=== PATIENT | male | born 1985 | race Caucasian/White ===

== ENCOUNTER 2017-06-01 12:14 | Emergency (ER) | payer OTHER ==
[~2017-06-01] VITALS: Ht 182.9 cm; Wt 100.6 kg
[2017-06-01 12:15] VITALS: TEMP 36.7; Ht 182.9 cm; Wt 100.6 kg
[2017-06-01] MEDS ORDERED: KETOROLAC TROMETHAMINE 30 MG/ML VIAL IV STA (12:31)
--- NOTE | 2017-06-01 12:45 | EMERGENCY ROOM VISIT NOTE ---
ED Visit Note First contact with patient: 12:19 CHIEF COMPLAINT: Right knee pain and swelling HISTORY OF PRESENT ILLNESS: This is a 31-year-old male who presents to the emergency department with complaint of right knee pain and swelling for the past 5 days. The patient does note a possible injury to the knee 2 weeks ago when he fell on some ice, states he mostly injured his left knee which has not been bothering him, but thinks he may have hit his right knee as well. 5 days ago he began to have swelling in the front of his right knee, this got much worse yesterday, stating my knee looked like a basketball. He states that he has been hot to the touch, very painful, difficult to walk on, painful with bending and straightening the knee, and has started to become red. States the pain is constant, 6/10. He has been taking ibuprofen and applying ice without any improvement. He denies any previous injuries to the right knee. He denies any fevers or chills, numbness/tingling or weakness of the extremity, denies any right hip or ankle pain, denies any swelling or pain of other joints. He states he spends a lot of time outdoors and it is possible he could have been exposed to ticks. REVIEW OF SYSTEMS: A complete 10 point review of systems was reviewed with the patient with pertinent positives and negatives as per history of present illness. All else were negative. PMH: The patient is healthy; there is no significant medical or surgical history. SOCIAL HISTORY: Patient lives at home. He denies tobacco use. PHYSICAL EXAM: Vital Signs: Reviewed Nurse's notes. CONSTITUTIONAL: Pleasant and cooperative. No acute distress, but with noticeable discomfort during exam. Well appearing and well nourished. HEENT: Normocephalic, atraumatic. Pupils equal, round and reactive to light, EOMI. TMs normal. Pharynx normal. Moist mucous membranes. NECK: Supple, full active range of motion without discomfort. RESPIRATORY: Clear to auscultation bilaterally with no wheezing, crackles, rhonchi or stridor. Equal expansion bilaterally. CARDIOVASCULAR: Regular rate and rhythm with no murmurs, rubs or gallops. Normal peripheral perfusion. No edema. GASTROINTESTINAL: Soft, nontender, nondistended. No palpable masses or HSM. Bowel sounds present in all quadrants. MUSCULOSKELETAL: There is moderate swelling over the anterior prepatellar area of the right knee, with a small joint effusion. Full flexion and extension of the knee intact, however there is increased pain with flexion. There is no ligamentous instability. There is mild erythema over the anterior knee, warm to touch, and tender to palpation. There is fluctuance over the prepatellar area consistent with the bursa. Normal strength and sensation of the extremity. No calf swelling or tenderness. Full range of motion of the right ankle and hip. INTEGUMENTARY: No rash or other significant dermatologic conditions noted. NEUROLOGIC: Alert and oriented X 4 with normal affect. Cranial nerves II-XII grossly intact. No focal neurologic deficits noted. M IMAGING: RIGHT KNEE 3 VIEWS CLINICAL HISTORY: Knee injury. Pain and swelling. FINDINGS: AP, crosstable lateral, and sunrise views of the right knee are obtained. No prior studies are available for comparison at the time of dictation. The skeletal structures are well mineralized. No fracture is seen. The joint spaces of the knee are well-maintained. There is a joint effusion, as well as marked prepatellar soft tissue edema. IMPRESSION: Soft tissue edema and joint effusion. No right knee fracture is seen. PROCEDURE: Knee Arthrocentesis, right Indication: Right knee swelling, erythema, pain, warmth Verbal consent was obtained after the risks and benefits were explained, including but not limited to bleeding/clotting, scarring, infection, pain, and bone/joint/nerve damage. At this time, the risks of the procedure are less than the risks of NOT performing the procedure. A time out was taken and the correct patient and site identified. The patient was placed in the supine position with a towel roll under the right knee in a slightly flexed position. The knee was prepped with betadine and draped in the standard fashion. The right superior lateral joint space was identified, anesthetized locally with 1% buffered lidocaine with epinephrine. An 18G needle was inserted through the skin, and constant steady traction was applied to the syringe as the needle was slowly advanced there was no return of fluid. A second attempt was also made from the same approach to drain the bursa utilizing the same technique, small amount of thick clotted blood was drawn back, no other fluid. No additional attempts were made, as the patient was experiencing significant discomfort during the procedure, therefore the procedure was stopped. The needle was removed and the skin was cleaned with sterile gauze and saline, and a band-aid was placed over the insertion site. There were no known complications. EMERGENCY DEPARTMENT COURSE: I examined the patient. Differential diagnosis includes knee sprain/strain, contusion, hematoma, bursitis, tendinitis, effusion , gouty arthritis, Lyme arthritis, joint, among others. X-ray of the right knee does not show any fractures, but does show a moderate amount of prepatellar soft tissue swelling and small joint effusion. Labs were ordered, no significant concerns for septic joint given no leukocytosis or elevation and inflammatory markers. There is an elevated uric acid level, which may indicate a gouty process. I discussed risks and benefits of arthrocentesis with the patient, he verbalized understanding and was agreeable to the procedure. The procedure was performed, however there was no fluid aspirate obtained to send to the lab. Given the return of clotted blood from the bursa, I do suspect a traumatic bursitis of the knee, however given that the area is warm and erythematous, I am also concerned for an infectious process. Patient does have good range of motion in the knee joint and labs are unremarkable, therefore I do not suspect septic joint at this time. The patient's knee was wrapped in an Sean wrap and place in a knee immobilizer, with good improvement in patient comfort. Patient was provided with Rx for Keflex and [place] for pain management. The patient was instructed to follow closely with his primary care provider and was given strict precautions should his symptoms worsen in any way , he verbalized understanding. Patient was discharged home in stable condition and laboratory. Medication Reconciliation: I attest that I have personally reviewed the patient' s current medication list. Blood pressure screening: The patient was found to have an elevated blood pressure, this was felt to be situational due to pain. I discussed the patient with Dr. Gonzalez, who agrees with my assessment and plan. Current/Historical Medications Scheduled Cephalexin Monohydrate (Keflex), 500 MG PO QID Scheduled PRN Hydrocodone/Acetaminophen 5MG/325MG ([place] 5MG/325MG), 1-2 TABLET PO Q4H PRN for Pain Allergies Coded Allergies: No Known Allergies (Unverified , 06/01/17) Vital Signs Date Time Temp Pulse Resp B/P (MAP) Pulse Ox O2 Delivery O2 Flow Rate FiO2 06/01/17 15:19 73 16 147/86 96 Room Air 06/01/17 14:00 74 15 135/88 98 Room Air 06/01/17 12:15 36.7 78 18 139/93 98 Room Air Laboratory Results 06/01/17 12:45 Red Blood Count 4.85, Mean Corpuscular Volume 92.0, Mean Corpuscular Hemoglobin 32.4, Mean Corpuscular Hemoglobin Concent 35.2, Mean Platelet Volume 11.3, Neutrophils (%) (Auto) 55.5, Lymphocytes (%) (Auto) 33.7, Monocytes (%) (Auto) 7.1, Eosinophils (%) (Auto) 3.0, Basophils (%) (Auto) 0.4, Neutrophils # (Auto) 5.53, Lymphocytes # (Auto) 3.36, Monocytes # (Auto) 0.71, Eosinophils # (Auto) 0.30, Basophils # (Auto) 0.04 06/01/17 12:45 Test 06/01/17 12:45 White Blood Count 9.97 K/uL (4.8-10.8) Red Blood Count 4.85 M/uL (4.7-6.1) Hemoglobin 15.7 g/dL (14.0-18.0) Hematocrit 44.6 % (42-52) Mean Corpuscular Volume 92.0 fL (80-100) Mean Corpuscular Hemoglobin 32.4 pg (25-34) Mean Corpuscular Hemoglobin Concent 35.2 g/dl (32-36) Platelet Count 194 K/uL (130-400) Mean Platelet Volume 11.3 fL (7.4-10.4) Neutrophils (%) (Auto) 55.5 % Lymphocytes (%) (Auto) 33.7 % Monocytes (%) (Auto) 7.1 % Eosinophils (%) (Auto) 3.0 % Basophils (%) (Auto) 0.4 % Neutrophils # (Auto) 5.53 K/uL (1.4-6.5) Lymphocytes # (Auto) 3.36 K/uL (1.2-3.4) Monocytes # (Auto) 0.71 K/uL (0.11-0.59) Eosinophils # (Auto) 0.30 K/uL (0-0.5) Basophils # (Auto) 0.04 K/uL (0-0.2) RDW Standard Deviation 41.5 fL (36.4-46.3) RDW Coefficient of Variation 12.3 % (11.5-14.5) Immature Granulocyte % (Auto) 0.3 % Immature Granulocyte # (Auto) 0.03 K/uL (0.00-0.02) Erythrocyte Sedimentation Rate < 2 mm/hr (0-14) Anion Gap 5.0 mmol/L (3-11) Est Creatinine Clear Calc Drug Dose 136.9 ml/min Estimated GFR () 121.6 Estimated GFR (Non- 104.9 BUN/Creatinine Ratio 12.6 (10-20) Uric Acid 7.5 mg/dl (2.6-7.2) Calcium Level 9.0 mg/dl (8.5-10.1) Total Bilirubin 0.4 mg/dl (0.2-1) Direct Bilirubin mg/dl (0-0.2) Aspartate Amino Transf (AST/SGOT) 30 U/L (15-37) Alanine Aminotransferase (ALT/SGPT) 57 U/L (12-78) Alkaline Phosphatase 67 U/L (45-117) C-Reactive Protein < 0.29 mg/dl (0-0.29) Total Protein 7.9 gm/dl (6.4-8.2) Albumin 4.5 gm/dl (3.4-5.0) Chemistry Specimen Hemolysis Lyme Disease IgG Antibody NEG (NEG) Lyme Disease IgM Antibody NEG (NEG) Medications Administered Medications (Trade) Dose Ordered Sig/Josh Route Start Time Stop Time Status Last Admin Dose Admin Ketorolac Tromethamine (Toradol Inj) 15 mg NOW STAT IV 06/01/17 12:31 06/01/17 12:35 DC 06/01/17 13:12 15 MG Cephalexin Monohydrate (Keflex 500MG Home Pack) 1 homepack NOW ONCE PO 06/01/17 14:45 06/01/17 14:46 DC 06/01/17 14:58 1 HOMEPACK Cephalexin Monohydrate (Keflex Cap) 500 mg NOW ONCE PO 06/01/17 14:45 06/01/17 14:46 DC 06/01/17 14:58 500 MG Acetaminophen/ Hydrocodone Bitart ([place] 5/325mg Home Pack) 1 homepack UD ONCE PO 06/01/17 14:45 1/1/18 14:46 DC 06/01/17 14:58 1 HOMEPACK Departure Information Impression Primary Impression: Prepatellar bursitis, right knee Dispostion Home / Self-Care Condition GOOD Prescriptions Hydrocodone/Acetaminophen 5MG/325MG ([place] 5MG/325MG) Tab 1-2 TABLET PO Q4H Y for Pain, #20 TAB For Initial Treatment Prov: Consuelo DevineLULU Alvarado 06/01/17 Cephalexin Monohydrate (Keflex) 500 Mg Cap 500 MG PO QID for 7 Days, #28 CAP Prov: Consuelo Devine, [employer] 06/01/17 Referrals No Doctor, Assigned (PCP) Patient Instructions ED Bursitis, ED Infec Skin Cellulitis, [facility] Additional Instructions You were seen in the Emergency Department for cellulitis and bursitis of your right knee. You have been prescribed Keflex to be taken 4 times a day for 7 days. This is an antibiotic to treat for infection. Stop this medication and contact a medical provider if you were to develop any significant adverse side effects including: wheezing, shortness of breath, passing out, vomiting, or a diffuse rash. Always take antibiotics as directed and COMPLETE the ENTIRE course regardless of the improvement of your symptoms. You have been prescribed [place] to be taken as needed for severe pain. This is a narcotic, do not drive, operate machinery, or drink alcohol while you're taking this medication, as it may make you drowsy. For pain control, you can use the following [id number] medicines (if >12 yo): - Extra strength (500mg/tab) Tylenol (acetaminophen) 1-2 tabs every 6-8 hours as needed. Do not exceed 6 tablets in a 24 hour period. Avoid taking more than 3 grams (3000 mg) of Tylenol per day. This includes any other sources of acetaminophen you may take on a regular basis. - Regular strength (200 mg/tab) Advil (ibuprofen) 1-2 tabs every 4-6 hours as needed. Do not exceed a dose of 3200 mg per day. Apply warm compresses to the area to help with pain and also to help improve the infection. Keep the knee wrapped in Sean wrap for compression of the swelling and wear the knee brace for comfort, until the knee pain and swelling are improved. Follow up with your PCP in 2 days for recheck, or sooner for worsening symptoms. Look for signs of worsening infection of the wound including: increased pain, swelling, foul discharge, streaking, or fevers/chills/feeling ill. If any of these are noticed you should return to the Emergency Department for further assessment and treatment. Work Instructions Return To Work: 2 days
[2017-06-01 12:56] LABS: BASO % 0.4 %; BASO ABS # 0.04 K/uL (0-0.2); HEMATOCRIT 44.6 % (42-52); HEMOGLOBIN 15.7 g/dL (14.0-18.0); IG# 0.03 K/uL (0.00-0.02); LYMPH % 33.7 %; LYMPH ABS # 3.36 K/uL (1.2-3.4); MEAN CORPUSCULAR HEMOGLOBIN 32.4 pg (25-34); MEAN CORPUSCULAR HGB CONC 35.2 g/dl (32-36); MEAN PLATELET VOLUME 11.3 fL (7.4-10.4); MONO % 7.1 %; MONO ABS # 0.71 K/uL (0.11-0.59); NEUT % 55.5 %; NEUT ABS # 5.53 K/uL (1.4-6.5); PLATELET COUNT 194 K/uL (130-400); RED CELL DISTRIBUTION WIDTH CV 12.3 % (11.5-14.5); RED CELL DISTRIBUTION WIDTH SD 41.5 fL (36.4-46.3); WHITE BLOOD COUNT 9.97 K/uL (4.8-10.8)
--- NOTE | 2017-06-01 13:06 | DIAGNOSTIC IMAGING REPORT ---
RIGHT KNEE 3 VIEWS CLINICAL HISTORY: Knee injury. Pain and swelling. FINDINGS: AP, crosstable lateral, and sunrise views of the right knee are obtained. No prior studies are available for comparison at the time of dictation. The skeletal structures are well mineralized. No fracture is seen. The joint spaces of the knee are well-maintained. There is a joint effusion, as well as marked prepatellar soft tissue edema. IMPRESSION: Soft tissue edema and joint effusion. No right knee fracture is seen. Electronically signed by: Kodak Jacobs M.D. 06/01/2017 1:05 PM Dictated Date/Time: 06/01/2017 1:04 PM
[2017-06-01 13:16] LABS: ALBUMIN 4.5 gm/dl (3.4-5.0); ALKALINE PHOSPHATASE 67 U/L (45-117); ALT/SGPT 57 U/L (12-78); AST/SGOT 30 U/L (15-37); BLOOD UREA NITROGEN 12 mg/dl (7-18); CARBON DIOXIDE 29 mmol/L (21-32); CREATININE 0.96 mg/dl (0.60-1.40); GLUCOSE 87 mg/dl (70-99); SODIUM 139 mmol/L (136-145); TOTAL PROTEIN 7.9 gm/dl (6.4-8.2); URIC ACID 7.5 mg/dl (2.6-7.2)
[2017-06-01] MEDS ORDERED: LIDOCAINE/EPINEPHRINE 1% 20 ML VIAL INFIL ONE (13:45)
[2017-06-01] MEDS ORDERED: CEPH500C PO (14:43)
[2017-06-01] MEDS ORDERED: HYDR-5688 PO (14:43)
[2017-06-01] MEDS ORDERED: CEPHALEXIN 500MG HOME PACK 1 EA BTL PO ONE (14:45)
[2017-06-01] MEDS ORDERED: CEPHALEXIN MONOHYDRATE 250 MG CAP PO ONE (14:45)
[2017-06-01] MEDS ORDERED: NORCO 5/325MG HOME PACK PO ONE (14:45)
[2017-06-01 15:19] VITALS: BP 147/86; PULSE 73; O2SAT 96
== END 2017-06-01 15:20 | disposition home or self-care (01) ==
LOC: C.EDB 12:15 → C.EDD 15:20
DX: M70.41 Prepatellar bursitis, right knee (principal); W00.9XXA Unspecified fall due to ice and snow, initial encounter